=== PATIENT | male | born 1975 | race Native Hawaiian/Other Pacific Islander ===

== ENCOUNTER 2016-11-26 14:52 | Emergency (ER) | payer SELFPAY ==
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
[2016-11-26 16:30] VITALS: BP 147/89; TEMP 99.6; O2SAT 99
== END 2016-11-26 16:00 | disposition home or self-care (01) ==
LOC: ER 14:52
DX: S11.91XA Laceration without foreign body of unspecified part of neck, initial encounter (principal); X99.8XXA Assault by other sharp object, initial encounter